=== PATIENT | male | born 1980 | race American Indian/Alaskan Native ===

== ENCOUNTER 2018-03-22 02:51 | Emergency (ER) | payer SELFPAY ==
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
== END 2018-03-22 03:27 | disposition home or self-care (01) ==
LOC: DL.ED 02:51
DX: S00.33XA Contusion of nose, initial encounter (principal); Y04.0XXA Assault by unarmed brawl or fight, initial encounter; Z88.1 Allergy status to other antibiotic agents
CPT/HCPCS: 99284

== ENCOUNTER 2021-08-21 12:46 | Emergency (ER) | payer MEDICAID | END 2021-08-21 13:15 | disposition left against medical advice (07) | LOC: DL.ED 12:46 | DX: S01.311A Laceration without foreign body of right ear, initial encounter (principal); F17.210 Nicotine dependence, cigarettes, uncomplicated; W26.8XXA Contact with other sharp object(s), not elsewhere classified, initial encounter | CPT/HCPCS: 99282; 99284 ==